=== PATIENT | female | born 1960 | race Caucasian/White ===

== ENCOUNTER → 2017-05-01 | Outpatient (CLI) | payer BC ==
[~2017-05-01] MED LIST: AMIT10TA PO; BUDE10.22 IH; DEXL60CA2 PO; DICL75TA PO; FLUT1DIS3 IH; LEVO25TA4 PO; LORA0.5T PO; SERT25TA PO; SIMV20TA3 PO; SUMA100T4 PO
--- NOTE | 2017-05-01 15:39 | RAD ---
Indication chronic left ankle pain. AP oblique and lateral views of the left ankle were obtained. Arthrodesis is noted. There is bony demineralization perhaps on a disuse basis. An acute bony finding is not seen. There is some deformity of the distal fibular diaphysis having a chronic appearance. IMPRESSION: Chronic changes. No acute finding seen
== END | disposition home or self-care (01) ==
LOC: DXRADRC 15:26
PROVIDERS: ATTEND Family Medicine
DX: M25.572 Pain in left ankle and joints of left foot (principal)
CPT/HCPCS: 73610

== ENCOUNTER 2018-10-06 15:13 | Emergency (ER) | payer BC ==
[~2018-10-06] VITALS: Ht 154.9 cm; Wt 44.9 kg
[2018-10-06 15:13] VITALS: BP 100/59
--- NOTE | 2018-10-06 15:38 | PHYS DOC ---
Past History Past Medical History: Asthma, High Cholesterol Smoking: Cigarettes Adult General Chief Complaint Chief Complaint: LOWER EXTREMITY SWELLING HPI HPI Patient presents to the emergency department for evaluation. She states that about a week ago while at work, she dropped a heavy crate on her left leg, and developed some bruising on the left lateral aspect of her lower leg below the knee, in the area of the fibular head. She also developed a subcutaneous nodule on her anterior batres on the left. She has not had any significant pain, and has been able to angulate without any difficulty. She has had chronic ankle issue secondary to fusion many years ago on her left ankle, but is not having any discomfort in the area. Her employer required her to come to the emergency department for evaluation for Worker's Compensation and treatment to rule out a blood clot. The patient is having no increased edema of her leg compared to her baseline, and is having no calf or soft tissue pain. She is ambulatory without any difficulty. She denies any chest pain or shortness of breath, and is having no other complaints at this time. Review of Systems Review of Systems Constitutional: Denies fever or chills [] Eyes: Denies change in visual acuity, redness, or eye pain [] HENT: Denies nasal congestion or sore throat [] Respiratory: Denies cough or shortness of breath [] Cardiovascular: The patient denies any shortness of breath, chest pain, palpitations, or orthopnea[] Musculoskeletal: Denies back pain or joint pain [] Integument: Denies rash or skin lesions [] Neurologic: Denies headache, focal weakness or sensory changes [] Allergies Allergies Allergies Coded Allergies Type Severity Reaction Last Updated Verified Penicillins Allergy Unknown 06/26/15 Yes Physical Exam Physical Exam PHYSICAL EXAM: CONSTITUTIONAL: Well developed, well nourished HEAD: normocephalic, atraumatic EENT: PERRL, EOMI. Conjunctivae normal color, sclerae non-icteric; moist mucous membranes. NECK: Supple, non-tender; no meningismus. LUNGS: Lungs CTA, breathing even and unlabored. Normal air movement. HEART: Regular rate and rhythm, no murmur CHEST: No deformity; non-tender ABDOMEN: The abdomen is soft, and non-tender, no masses or bruits. EXTREM: Normal ROM; no deformity, no calf tenderness. Normal pulses palpable in all extremities. There is a half dollar area of bruising noted at the left lateral superior lower leg, in the area of the fibular head, without any crepitus or bony tenderness to palpation. There is a small subcutaneous nodule on the lower anterior batres, about nicci size, which is nontender. There are no skin changes in this area. There is no other bruising noted. There is chronic changes noted to the left ankle without any tenderness to palpation. Distal pulses are normal. There is no calf tenderness to palpation or soft tissue swelling. The soft tissues of the thighs are nontender bilaterally. The remainder of the extremities are unremarkable, there is trace nonpitting pedal edema to the lower extremities bilaterally. SKIN: No rash; no diaphoresis NEURO: Alert; normal speech and cognition; CN's grossly intact; strength grossly intact without focal deficit. BACK: No CVA TTP. EKG EKG [] Radiology/Procedures Radiology/Procedures [] Course & Med Decision Making Course & Med Decision Making The clinical suspicion for DVT is extraordinarily low. I do not even think the patient warrants an ultrasound and she is agreeable to expectant management. I' m uncertain of the exact etiology of the soft tissue nodule her anterior batres, it might be posttraumatic but is certain it does not appear to be a DVT or even a superficial thrombophlebitis. I did discuss importance of close follow-up with the patient's PCP for further evaluation if needed. Dragon Disclaimer Dragon Disclaimer This electronic medical record was generated, in whole or in part, using a voice recognition dictation system. Departure Departure: Impression: Primary Impression: Contusion Disposition: 01 HOME, SELF-CARE Condition: STABLE Referrals: YEHUDA BAKER MD (PCP) Patient Instructions: Contusion DEMI MACEDO MD Oct 06, 2018 15:38
== END 2018-10-06 15:46 | disposition home or self-care (01) ==
LOC: ER 15:13
DX: S80.12XA Contusion of left lower leg, initial encounter (principal); R22.42 Localized swelling, mass and lump, left lower limb; J45.909 Unspecified asthma, uncomplicated; E78.00 Pure hypercholesterolemia, unspecified; F17.210 Nicotine dependence, cigarettes, uncomplicated; Z88.0 Allergy status to penicillin; W20.8XXA Other cause of strike by thrown, projected or falling object, initial encounter; Y93.89 Activity, other specified; Y92.89 Other specified places as the place of occurrence of the external cause; Y99.0 Civilian activity done for income or pay
CPT/HCPCS: 99281

== ENCOUNTER 2019-05-12 14:12 | Emergency (ER) | payer SELFPAY ==
[2019-05-12] MEDS ORDERED: IV NORMAL SALINE 1,000ML 1,000 ML IV ONE (14:30)
--- NOTE | 2019-05-12 14:47 | EKG ---
[address] [address] Test Date: 2019-05-12 Test Time: 14:47:20 Pat Name: GARCIA TELLEZ Department: Room: Gender: F Sr. Manager: : 1960 Requested By: YAMILA STEWART Order Number: [id number] Reading MD: Measurements Intervals [place] Rate: 61 P: 49 PA: 152 QRS: 56 QRSD: 82 T: 38 QT: 436 QTc: 440 Interpretive Statements SINUS RHYTHM NORMAL ECG RI6.01 No previous ECG available for comparison
[2019-05-12 15:05] LABS: BASO % 0 % (0-3); EOS % 1 % (0-3); HEMATOCRIT 41.4 % (36.0-47.0); HEMOGLOBIN 13.7 g/dL (12.0-15.5); LYMPH # 1.7 x10^3/uL (1.0-4.8); LYMPH % 30 % (24-48); MEAN CORPUSCULAR HEMOGLOBIN 33 pg (25-35); MEAN CORPUSCULAR HGB CONC 33 g/dL (31-37); MEAN CORPUSCULAR VOLUME 100 fL (79-100); MONO # 0.5 x10^3/uL (0.0-1.1); MONO % 10 % (0-9); NEUT # 3.2 x10^3uL (1.8-7.7); NEUT % 59 % (31-73); PLATELET COUNT 295 x10^3/uL (140-400); RED BLOOD COUNT 4.14 x10^6/uL (3.50-5.40); RED CELL DISTRIBUTION WIDTH 13.8 % (11.5-14.5); WHITE BLOOD COUNT 5.5 x10^3/uL (4.0-11.0)
[2019-05-12 15:20] LABS: ALBUMIN 3.7 g/dL (3.4-5.0); ALBUMIN/GLOBULIN RATIO 1.1 (1.0-1.7); CALCIUM 9.2 mg/dL (8.5-10.1); CREATININE 0.8 mg/dL (0.6-1.0); GFR 73.7; MAGNESIUM 2.2 mg/dL (1.8-2.4); POTASSIUM 4.4 mmol/L (3.5-5.1); TOTAL BILIRUBIN 0.2 mg/dL (0.2-1.0)
[2019-05-12] MEDS ORDERED: DEXAMETHASONE SOD PHOS 10 MG/ML VIAL IV ONE (15:30)
--- NOTE | 2019-05-12 15:34 | PHYS DOC ---
Past History Past Medical History: Asthma, High Cholesterol Past Surgical History: Hysterectomy, Other Smoking: Cigarettes, Greater than 1 pack/day Alcohol Use: None Drug Use: None Adult General Chief Complaint Chief Complaint: DIZZY/LIGHT HEADED HPI HPI Ms. Lamas is a 58yo F w/ PMH significant for asthma and hypothyroidism presents w/ fatigue, balance issues, and b/l ear pain that began a "couple of days ago." Reports feeling hot and cold. Denies PAZ, vertigo, CP, SOA, or LOC, fall or head trauma. States she "ran out" of her medications 2 days ago which include Zoloft and Levothyroxine. Review of Systems Review of Systems Constitutional: Reports fatigue and generalized weakness. Denies fever or chills Eyes: Denies redness or eye pain HENT: Reports b/l ear pain. Denies nasal congestion or sore throat Respiratory: Denies cough or shortness of breath Cardiovascular: Denies chest pain or palpitations GI: Denies abdominal pain, nausea, vomiting, diarrhea, constipation, or hematochezia. : Denies dysuria or hematuria Musculoskeletal: Denies back pain or joint pain Integument: Denies rash or skin lesions Neurologic: Denies headache, focal weakness or sensory changes Complete systems were reviewed and found to be within normal limits, except as documented in this note. Current Medications Current Medications Current Medications Medications (Trade) Dose Ordered Sig/Mohsen Start Time Stop Time Status Last Admin Dose Admin Sodium Chloride 1,000 ml @ 1,000 mls/hr 1X ONCE 05/12/19 14:30 05/12/19 15:29 05/12/19 14:15 1,000 MLS/HR Allergies Allergies Allergies Coded Allergies Type Severity Reaction Last Updated Verified Penicillins Allergy Unknown 06/26/15 Yes Physical Exam Physical Exam Constitutional: thin, fatigued, no acute distress, non-toxic appearance HENT: Normocephalic, atraumatic, oropharynx dry Eyes: PERRL, EOMI, conjunctiva normal, no discharge Neck: Normal range of motion, no tenderness, supple, no cervical or supraclavicular LAD Cardiovascular: Heart RRR w/o gallops, rubs, or murmurs. Lungs & Thorax: Bilateral breath sounds clear to auscultation, no wheezing Abdomen: Soft, no tenderness, non-distended Skin: Warm, dry, no erythema, no rash Back: No tenderness, no CVA tenderness Extremities: No tenderness, ROM intact, no edema Neurologic: Alert and oriented X 3, normal motor function, normal sensory function, no focal deficits noted Psychologic: Affect normal, judgement normal, mood normal Current Patient Data Vital Signs Vital Signs Date Time Temp Pulse Resp B/P (MAP) Pulse Ox O2 Delivery O2 Flow Rate FiO2 05/12/19 14:30 98.3 68 20 98 Room Air Lab Results Laboratory Tests Test 05/12/19 14:40 White Blood Count 5.5 x10^3/uL (4.0-11.0) Red Blood Count 4.14 x10^6/uL (3.50-5.40) Hemoglobin 13.7 g/dL (12.0-15.5) Hematocrit 41.4 % (36.0-47.0) Mean Corpuscular Volume 100 fL (79-100) Mean Corpuscular Hemoglobin 33 pg (25-35) Mean Corpuscular Hemoglobin Concent 33 g/dL (31-37) Red Cell Distribution Width 13.8 % (11.5-14.5) Platelet Count 295 x10^3/uL (140-400) Neutrophils (%) (Auto) 59 % (31-73) Lymphocytes (%) (Auto) 30 % (24-48) Monocytes (%) (Auto) 10 % (0-9) H Eosinophils (%) (Auto) 1 % (0-3) Basophils (%) (Auto) 0 % (0-3) Neutrophils # (Auto) 3.2 x10^3uL (1.8-7.7) Lymphocytes # (Auto) 1.7 x10^3/uL (1.0-4.8) Monocytes # (Auto) 0.5 x10^3/uL (0.0-1.1) Eosinophils # (Auto) 0.0 x10^3/uL (0.0-0.7) Basophils # (Auto) 0.0 x10^3/uL (0.0-0.2) Sodium Level 141 mmol/L (136-145) Potassium Level 4.4 mmol/L (3.5-5.1) Chloride Level 105 mmol/L (98-107) Carbon Dioxide Level 26 mmol/L (21-32) Anion Gap 10 (6-14) Blood Urea Nitrogen 20 mg/dL (7-20) Creatinine 0.8 mg/dL (0.6-1.0) Estimated GFR (Cockcroft-Gault) 73.7 BUN/Creatinine Ratio 25 (6-20) H Glucose Level 83 mg/dL (70-99) Lactic Acid Level 0.8 mmol/L (0.4-2.0) Calcium Level 9.2 mg/dL (8.5-10.1) Magnesium Level 2.2 mg/dL (1.8-2.4) Total Bilirubin 0.2 mg/dL (0.2-1.0) Aspartate Amino Transferase (AST) 14 U/L (15-37) L Alanine Aminotransferase (ALT) 16 U/L (14-59) Alkaline Phosphatase 77 U/L (46-116) Creatine Kinase 81 U/L (26-192) Creatine Kinase MB (Mass) 2.0 ng/mL (0.0-3.6) Creatine Kinase MB Relative Index 2.5 % (0-4) Total Protein 7.0 g/dL (6.4-8.2) Albumin 3.7 g/dL (3.4-5.0) Albumin/Globulin Ratio 1.1 (1.0-1.7) EKG EKG EKG obtained @ 14:47 and read @ 14:48. Sinus rhythm w/ LVH of lateral chest leads V4-6. No ST-elevations noted.[] Radiology/Procedures Radiology/Procedures Head CT: 1. No acute intracranial abnormality is identified. 2. There is some asymmetric likely calcification region of the left cavernous sinus comparing with the right, underlying aneurysm not excludable by this exam. Chest X-Ray: No acute chest process is seen. [] Course & Med Decision Making Course & Med Decision Making Pertinent Labs and Imaging studies reviewed. (See chart for details) Patient presented w/ generalized fatigue. Negative for UTI. No acute processes noted on CXR or Head CT. EKG sinus rhythm w/ LVH. Patient stable for discharge with outpatient follow-up with PCP. Discussed findings and plan with patient and family, who acknowledge understanding and agreement. [] Dragon Disclaimer Dragon Disclaimer This electronic medical record was generated, in whole or in part, using a voice recognition dictation system. Departure Departure: Impression: Primary Impression: Generalized weakness Disposition: 01 HOME, SELF-CARE Condition: STABLE Referrals: YEHUDA BAKER MD (PCP) Patient Instructions: Fatigue, Weakness, [id number] Additional Instructions: Increase fluid hydration. NIHSS - ED NIH Stroke Scale: NIH Stroke Scale Response (Comments) Value Level of Consciousness: 0 Alert/Responsive 0 LOC Questions: 0 Answers both correctly 0 LOC Commands: 0 Performs both tasks 0 Best Gaze: 0 Normal 0 Visual: 0 No visual loss 0 Facial Palsy: 0 Normal, symmetrical 0 Motor - Left Arm 0 No drift 0 Motor - Right Arm 0 No drift 0 Motor - Left Leg 0 No drift 0 Motor: Right Leg 0 No drift 0 Limb Ataxia: 0 Absent 0 Sensory: 0 No loss 0 Best Language: 0 Normal 0 Dysathria: 0 Normal 0 Extinction and Inattention: 0 Normal 0 Total 0 STEWART,YAMILA Hendricks DO May 12, 2019 15:34
--- NOTE | 2019-05-12 15:55 | RAD ---
Chest, PA and Lateral: Technique: PA and lateral views of the chest were obtained. History: Weakness. Comparison: None. Findings: The heart and pulmonary vasculature appear within normal limits. The lungs are clear. The pleural margins are clear. Impression: No acute chest process is seen. Electronically signed by: Pedrito Mendez MD (05/12/2019 3:52 PM) [id number]
--- NOTE | 2019-05-12 16:02 | RAD ---
CT HEAD WO CONTRAST History: Weakness Comparison: December 03, 2012 Technique: Noncontrast CT imaging was performed of the head. Exposure: One or more of the following individualized dose reduction techniques were utilized for this examination: 1. Automated exposure control 2. Adjustment of the mA and/or kV according to patient size 3. Use of iterative reconstruction technique. Findings: No acute extra-axial or parenchymal hemorrhage is identified. There is no significant intra-axial mass effect, midline shift, or extra-axial fluid collection. The goodwin-white differentiation of the major vascular territories is preserved. The ventricles, sulci, and cisterns are within normal limits in size and configuration. The mastoid air cells and the visualized paranasal sinuses are aerated. No acute calvarial abnormality is identified. There is some atherosclerotic calcification of the left carotid siphon. There is some asymmetric likely calcification in the region of the left cavernous sinus comparing with the right. Impression: 1. No acute intracranial abnormality is identified. 2. There is some asymmetric likely calcification region of the left cavernous sinus comparing with the right, underlying aneurysm not excludable by this exam. Electronically signed by: Ridge Elizalde MD (05/12/2019 3:59 PM) [id number]
[2019-05-12 16:33] LABS: AMPHETAMINE/METHAMPHETAMINE NEG (NEG); BARBITURATES NEG (NEG); BENZODIAZEPINES POS (NEG); CANNABINOIDS NEG (NEG); COCAINE NEG (NEG); METHADONE NEG (NEG); OPIATES NEG (NEG); PHENCYCLIDINE NEG (NEG)
[2019-05-12 16:43] LABS: BACTERIA,URINE 0 /HPF (0-FEW); BILIRUBIN,URINE NEG (NEG); CLARITY,URINE HAZY; COLOR,URINE AMBER; GLUCOSE,URINE NEG (NEG); NITRITE,URINE NEG (NEG); RBC,URINE OCC /HPF (0-2); SQUAMOUS EPITHELIAL CELL,UR OCC /LPF; UROBILINOGEN,URINE 0.2 mg/dL (0.2 mg/dL); WBC,URINE 0 /HPF (0-4)
[2019-05-12 17:48] VITALS: BP 112/71
[2019-05-13 14:38] LABS: FREE T4 0.72 ng/dL (0.76-1.46); THYROID STIM HORMONE (TSH) 1.149 uIU/mL (0.358-3.740)
== END 2019-05-12 17:40 | disposition home or self-care (01) ==
LOC: ER 14:12
DX: R53.1 Weakness (principal); R53.83 Other fatigue; H92.03 Otalgia, bilateral; J45.909 Unspecified asthma, uncomplicated; E78.00 Pure hypercholesterolemia, unspecified; F17.210 Nicotine dependence, cigarettes, uncomplicated; E03.9 Hypothyroidism, unspecified; Z88.0 Allergy status to penicillin
CPT/HCPCS: 36415; 70450; 71046; 80053; 80307; 81001; 82553; 82947; 83605; 83735; 84439; 84443; 84481; 84484; 85025; 93005; 96374; 99285; G0480; J1100; J7030

== ENCOUNTER 2019-06-07 15:20 | Emergency (ER) | payer SELFPAY ==
[~2019-06-07] VITALS: Ht 154.9 cm; Wt 43.1 kg
[2019-06-07 15:25] VITALS: BP 121/89
[2019-06-07] MEDS ORDERED: DEXAMETHASONE SOD PHOS 10 MG/ML VIAL IM ONE (15:45)
[2019-06-07] MEDS ORDERED: KETOROLAC 60 MG/2 ML VIAL. IM ONE (15:45)
--- NOTE | 2019-06-07 16:07 | RAD ---
EXAM: Pelvis, single view; sacrum and coccyx, 3 views. HISTORY: Fall. Pain. COMPARISON: None. FINDINGS: A frontal view the pelvis and 3 views of the sacrum and coccyx are obtained. No displaced fracture is seen. The femoral heads are normal in configuration and seated appropriately. The sacroiliac joints and pubis symphysis are intact. There is slight widening of the space between the C1 and C2 segments, within physiologic limits. IMPRESSION: No acute osseous finding. Electronically signed by: Jacque Dickson MD (06/07/2019 4:04 PM) [place] [id number]
[2019-06-07] MEDS ORDERED: HYDR-3165 PO (16:25)
[2019-06-07] MEDS ORDERED: DICL50TA4 PO (16:25)
--- NOTE | 2019-06-07 16:25 | PHYS DOC ---
Past History Past Medical History: Asthma, Depression, High Cholesterol, Hypothyroid Past Surgical History: Hysterectomy, Other Smoking: Cigarettes, Greater than 1 pack/day Alcohol Use: None Drug Use: None Adult General Chief Complaint Chief Complaint: BACK PAIN OR INJURY [facility] HPI Patient is a 58-year-old female who presents with complaint of approximately 1 week history of pain in her right lower back/buttock area. Patient states that pain is about an 8-9 out of 10. She denies any loss of bowel or bladder control. Patient is not aware of any recent injuries to cause the pain. She states that she has been taking [id number] pain medication without any relief. She does indicate the pain is progressively getting worse. She states that as long as she is not moving, she does not have significant pain. She states that as soon as she tries to move her right leg or lift the leg, she feels a stabbing pain in her right SI joint region.[] Review of Systems Review of Systems Constitutional: Denies fever or chills [] Respiratory: Denies cough or shortness of breath [] Cardiovascular: No additional information not addressed in HPI [] Musculoskeletal: Complains of right lower back/buttock pain [] Integument: Denies rash or skin lesions [] Neurologic: Denies headache, focal weakness or sensory changes [] Current Medications Current Medications Current Medications Medications (Trade) Dose Ordered Sig/[facility] Start Time Stop Time Status Last Admin Dose Admin Dexamethasone Sodium Phosphate (Decadron) 10 mg 1X ONCE 06/07/19 15:45 06/07/19 15:46 DC 06/07/19 15:53 10 MG Ketorolac Tromethamine (Toradol Im) 30 mg 1X ONCE 06/07/19 15:45 06/07/19 15:46 DC 06/07/19 15:53 30 MG Allergies Allergies Allergies Coded Allergies Type Severity Reaction Last Updated Verified Penicillins Allergy Unknown 06/26/15 Yes Physical Exam Physical Exam Constitutional: Well developed, well nourished, no acute distress, non-toxic appearance. [] Cardiovascular:Heart rate regular rhythm, no murmur [] Lungs & Thorax: Bilateral breath sounds clear to auscultation [] Skin: Warm, dry, no erythema, no rash. [] Back: There is moderate tenderness to palpation around the right sacral sulcus and overlying the right SI joint. [] Extremities: No tenderness, no cyanosis, no clubbing, ROM intact, no edema. [] Current Patient Data Vital Signs Vital Signs Date Time Temp Pulse Resp B/P (MAP) Pulse Ox O2 Delivery O2 Flow Rate FiO2 06/07/19 15:25 98.2 76 16 95 Room Air EKG EKG [] Radiology/Procedures Radiology/Procedures [] Impressions: PROCEDURE: PELVIS EXAM: Pelvis, single view; sacrum and coccyx, 3 views. HISTORY: Fall. Pain. COMPARISON: None. FINDINGS: A frontal view the pelvis and 3 views of the sacrum and coccyx are obtained. No displaced fracture is seen. The femoral heads are normal in configuration and seated appropriately. The sacroiliac joints and pubis symphysis are intact. There is slight widening of the space between the C1 and C2 segments, within physiologic limits. IMPRESSION: No acute osseous finding. Electronically signed by: Jacque Dickson MD (06/07/2019 4:04 PM) [place] [id number] DICTATED AND SIGNED BY: JACQUE DICKSON MD DATE: 06/07/19 1604 CC: JONAS TORRES Jr. DO; YEHUDA BAKER MD ~ PROCEDURE: SACRUM & COCCYX 3V EXAM: Pelvis, single view; sacrum and coccyx, 3 views. HISTORY: Fall. Pain. COMPARISON: None. FINDINGS: A frontal view the pelvis and 3 views of the sacrum and coccyx are obtained. No displaced fracture is seen. The femoral heads are normal in configuration and seated appropriately. The sacroiliac joints and pubis symphysis are intact. There is slight widening of the space between the C1 and C2 segments, within physiologic limits. IMPRESSION: No acute osseous finding. Electronically signed by: Jacque Dickson MD (06/07/2019 4:04 PM) [place] [id number] Course & Med Decision Making Course & Med Decision Making Pertinent Labs and Imaging studies reviewed. (See chart for details) [] Dragon Disclaimer Dragon Disclaimer This electronic medical record was generated, in whole or in part, using a voice recognition dictation system. Departure Departure: Impression: Primary Impression: Sacroiliac joint pain Disposition: 01 HOME, SELF-CARE Condition: STABLE Referrals: YEHUDA BAKER MD (PCP) Patient Instructions: Sacroiliac Joint Dysfunction Scripts Diclofenac Sodium (DICLOFENAC SODIUM) 50 Mg Tablet. 1 TAB PO BID PRN for PAIN, #20 TAB Prov: JONAS TORRES Jr. DO 06/07/19 Hydrocodone Bit/Acetaminophen (NORCO 5-325 TABLET) 1 Each Tablet 1 TAB PO PRN Q6HRS PRN for PAIN, #12 TAB 0 Refills Prov: JONAS TORRES Jr. DO 06/07/19 JONAS TORRES Jr. DO Jun 07, 2019 16:25
== END 2019-06-07 16:42 | disposition home or self-care (01) ==
LOC: ER 15:20
DX: M53.3 Sacrococcygeal disorders, not elsewhere classified (principal); J45.909 Unspecified asthma, uncomplicated; E78.00 Pure hypercholesterolemia, unspecified; E03.9 Hypothyroidism, unspecified; F17.210 Nicotine dependence, cigarettes, uncomplicated; Z90.710 Acquired absence of both cervix and uterus; Z88.0 Allergy status to penicillin
CPT/HCPCS: 72170; 72220; 96372; 99284; J1100; J1885

== ENCOUNTER 2020-03-19 00:45 | Inpatient (IN) | payer SELFPAY ==
[~2020-03-19] VITALS: Ht 154.9 cm; Wt 41.8 kg
[~2020-03-19 00:45] MED LIST changes: +DICL50TA4 PO; +HYDR-3165 PO; +SIMV20TA18 PO; -SIMV20TA3 PO
--- NOTE | 2020-03-19 01:04 | PHYS DOC ---
Past History Past Medical History: Anemia, Arthritis, Asthma, Bronchitis, COPD, Depression, High Cholesterol, Hypothyroid Past Surgical History: Hysterectomy, Other Past Surgical History Lt. ankle fx- repair, multiple breast bx, thryoid Smoking: Cigarettes, Greater than 1 pack/day Alcohol Use: Occasionally Drug Use: None General Adult EDM: Chief Complaint: LOWER EXTREMITY SWELLING HPI: HPI: ".. I am having a lot more swelling in my legs...".." It started yesterday.. all sudden... I ve always had some in that Lt. ankle I fractured last year.. I got too drunk..at a April green party.. they had to do surgery on it.. well anyway.... My friend seen my legs... and said I had to come in to night..." " My just got back home... he was here and then went to [employer].. 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 My legs got hurting and are so swollen my friend made me come in..." " I have been a little more short of breath... and weak..." " I came in the other day because I was weak... "..." I did take some my pain pills because of the leg pain..I took one just before my friend brought me... I am doing okay as far as the pain... now..." Patient is a 59 year old female who presents with above hx and complaints bilateral leg edema to the knees with pain. Patient denies previous history of DVT or coagulopathy. Patient has had periodic swelling of left ankle after she had a fracture in it a year ago that required surgical repair. Patient denies any changes in meds. Some in creased dyspnea recently. Patient does have a history of asthma, chronic bronchitis, osteoarthritis, hypothyroidism, hypertension, elevated cholesterol, multiple breast biopsy and BRCA gene positive. Did do a course of tamoxifen for 5 years for breast cancer suppression. The pt. denies excessive salt intake. Pt. has over 60 pack years tobacco use. Pt. recently trying to stop smoking with her . Occasional Marijuana use. Pt. denies any travel recently outside the [facility]. No history of specific ill contacts other than her who recently had a bad GI bleed and urine sepsis. Pt.denies any hx of immunosuppression. Pt. normally follows with Dr. Richey. Review of Systems: Review of Systems: Constitutional: Denies fever or chills Eyes: Denies change in visual acuity HENT: Denies nasal congestion or sore throat Respiratory: Hx cough and increased shortness of breath Cardiovascular: Denies chest pain . Complaints of bilateral leg edema GI: Denies abdominal pain, nausea, vomiting, bloody stools or diarrhea : Denies dysuria Musculoskeletal: Complaints of bilateral leg pain and edema. Integument: Denies rash Neurologic: Denies headache, focal weakness or sensory changes Endocrine: Denies polyuria or polydipsia Lymphatic: Denies swollen glands Psychiatric: Denies depression or anxiety Heart Score: HEART Score for Chest Pain: HEART Score for Chest Pain Response (Comments) Value History Slighlty/Non-Suspicious 0 ECG Nonspecific Repolarizatio 1 Age >45 - < 65 1 Risk Factors 1 or 2 Risk Factors 1 Troponin < Normal Limit 0 Total 3 Risk Factors: Risk Factors: DM, Current or recent (<one month) smoker, HTN, HLP, family history of CAD, obesity. Risk Scores: Score 0 - 3: 2.5% MACE over next 6 weeks - Discharge Home Score 4 - 6: 20.3% MACE over next 6 weeks - Admit for Clinical Observation Score 7 - 10: 72.7% MACE over next 6 weeks - Early Invasive Strategies Family History: Family History: Non contributory to presentation to night Current Medications: Current Meds: See Nursing for home meds. Allergies: Allergies: Allergies Coded Allergies Type Severity Reaction Last Updated Verified Penicillins Allergy Unknown 06/26/15 Yes Physical Exam: PE: Constitutional: mild distress, non-toxic appearance. [] HENT: Normocephalic, atraumatic, bilateral external ears normal, oropharynx moist, no oral exudates, nose normal. Nasal stud. Eyes: PERRLA, EOMI, conjunctiva normal, no discharge. [] Neck: Normal range of motion, no tenderness, supple, no stridor. Surgical scar. Cardiovascular:Heart rate regular rhythm, no murmur []PMI to Lt. Lungs & Thorax: Bilateral breath sounds equal apex with scattered wheezes on auscultation []Multiple breast biopsy scars. Abdomen: Bowel sounds normal, soft, no tenderness, no masses, no pulsatile masses. [] Old surgical scars. Skin: Warm, dry, no erythema, no rash. Poor turgor. Back: No tenderness, no CVA tenderness. [] Extremities:Bilateral lower leg tenderness, no cyanosis, no clubbing, , 2+edema to level of knees. Scar Lt.ankle. Limited ROM in Lt. ankle. . Arthritic changes. Dorsal pedal pulses present. Neurologic: Alert and oriented X 3,moves ext. on request, distal sensory function, no focal deficits noted. [] Psychologic: Affect anxious, judgement normal, mood normal. [] EKG: EKG: My interpretation EKG shows a sinus rhythm at 63 bpm. Has low voltage on leads. No findings of acute STEMI of contralateral changes. [] Radiology/Procedures: Radiology/Procedures: [address] [address] IMAGING REPORT Signed PATIENT: GARCIA TELLEZ ACCOUNT: [id number] : 1960 LOCATION: ER AGE: 59 SEX: F EXAM STATUS: REG ER ORD. PHYSICIAN: IMMANUEL MACHUCA MD REASON: dyspnea, BILAT. LEG SWELLING, OMNI 350, 75ml PROCEDURE: CT ANGIOGRAPHY CHEST INDICATION: Reason: dyspnea, BILAT. LEG SWELLING, OMNI 350, 75ml / Spl. Instructions: / History: COMPARISON: None. TECHNIQUE: Axial CT images obtained through the chest. Intravenous contrast utilized. Angiogram 3D images processed per protocol. One or more of the following individualized dose reduction techniques were utilized for this examination: 1. Automated exposure control; 2. Adjustment of the mA and/or kV according to patient size; 3. Use of iterative reconstruction technique. FINDINGS: Cystic changes throughout the bilateral lungs. No evidence of pneumothorax. Mild dependent atelectasis. Right upper lung subpleural nodule measuring approximately 4 mm. Cystic lesion at right kidney. Suspected left adrenal nodule which is low density measuring up to 17 mm. Could be from causes such as adenoma or hyperplasia. Calcific atherosclerosis throughout the thoracic aorta. There is almost no contrast within the lumen therefore the lumen is not evaluated. Coronary artery calcific atherosclerosis. Degenerative changes of the spine. Sclerotic lesion right second rib posteriorly. Most commonly from bone island unless the patient has history of neoplasm. Small peripheral filling defects in pulmonary arteries including left lung base. There is also some peripheral filling defects within the right lung base as well. Scoliotic curvature of the spine with degenerative changes. IMPRESSION: Small bilateral peripheral pulmonary embolus. Report called to the ER at 4:00 AM on date of exam. Cystic changes in bilateral lungs which can be seen with emphysema. There are some prominent lymph nodes including at the right pulmonary hilum. Could be reactive in nature but follow-up could be obtained to ensure no growth to exclude less common neoplastic causes. Electronically signed by: Tuan Rajput MD (03/19/2020 4:07 AM) [id number] [id number] DICTATED AND SIGNED BY: TUAN RAJPUT MD DATE: 03/19/20406 CC: IMMANUEL MACHUCA MD; YEHUDA RICHEY MD ~ [][place] [address] IMAGING REPORT Signed PATIENT: GARCIA TELLEZ ACCOUNT: [id number] : 1960 LOCATION: ER AGE: 59 SEX: F EXAM STATUS: REG ER ORD. PHYSICIAN: IMMANUEL MACHUCA MD REASON: PMI to lt PROCEDURE: CHEST PA & LATERAL INDICATION: Reason: PMI to lt / Spl. Instructions: / History: Shortness of breath COMPARISON: May 2019 FINDINGS: 2 view of chest obtained. Coarsened lung markings bilaterally with mild interstitial opacities. Calcific atherosclerosis without enlargement of the cardiac silhouette. IMPRESSION: * Coarsened lung markings bilaterally which could be secondary to chronic lung disease although a superimposed mild edema or pneumonitis is not excluded. Electronically signed by: Tuan Rajput MD (03/19/2020 4:21 AM) [id number] DICTATED AND SIGNED BY: TUAN RAJPUT MD DATE: 03/19/20420 CC: IMMANUEL MACHUCA MD; YEHUDA RICHEY MD ~ Course & Med Decision Making: Course & Med Decision Making Pertinent Labs and Imaging studies reviewed. (See chart for details) Admit to Dr. Navarro, observation status, complete US of legs and pelvis. Start with Lovenox and then Xarelto 15 bid. . Impression: 1. Edema- / Pain Bilateral Legs 2. Anemia 10.7 Hgb 3. Emphysema 4. Elevation of D-dimer 0.62 5. BNP 353 6. CK 211 7. Bilateral Pulmonary Embolisms 8. Tobacco Abuse ( excess 60+ pack years) 9. Hx. Osteoarthritis 10.Pulmonary nodules Rt. Hilar [] Dragon Disclaimer: Dragon Disclaimer: This electronic medical record was generated, in whole or in part, using a voice recognition dictation system. Departure Departure: Disposition: 01 HOME/RESIDENCE PRIOR TO ADM Condition: STABLE Referrals: YEHUDA RICHEY MD (PCP) Justification of Admission: Justification of Admission: Justification of Admission Dx: Yes Comments: Bilateral Pulmonary Embolus- Observation admit Dragon Disclaimer This chart was dictated in whole or in part using Voice Recognition software in a busy, high-work load, and often noisy Emergency Department environment. It may contain unintended and wholly unrecognized errors or omissions. IMMANUEL MACHUCA MD Mar 19, 2020 01:04
[2020-03-19] MEDS ORDERED: IV RINGERS SOLUTION,LACTATED 1,000 ML IV SCH (01:30)
[2020-03-19 01:52] LABS: BASO % 0 % (0-3); EOS # 0.1 x10^3/uL (0.0-0.7); EOS % 1 % (0-3); HEMATOCRIT 31.4 % (36.0-47.0); HEMOGLOBIN 10.7 g/dL (12.0-15.5); LYMPH # 2.5 x10^3/uL (1.0-4.8); LYMPH % 33 % (24-48); MEAN CORPUSCULAR HEMOGLOBIN 34 pg (25-35); MEAN CORPUSCULAR HGB CONC 34 g/dL (31-37); MEAN CORPUSCULAR VOLUME 99 fL (79-100); MONO # 0.5 x10^3/uL (0.0-1.1); MONO % 6 % (0-9); NEUT # 4.5 x10^3uL (1.8-7.7); NEUT % 59 % (31-73); PLATELET COUNT 381 x10^3/uL (140-400); RED BLOOD COUNT 3.17 x10^6/uL (3.50-5.40); WHITE BLOOD COUNT 7.7 x10^3/uL (4.0-11.0)
[2020-03-19 01:57] LABS: BILIRUBIN,URINE NEG (NEG); CLARITY,URINE CLEAR; COLOR,URINE YELLOW; GLUCOSE,URINE NEG (NEG); NITRITE,URINE NEG (NEG); UROBILINOGEN,URINE 0.2 mg/dL (0.2 mg/dL)
[2020-03-19 01:58] LABS: BACTERIA,URINE 0 /HPF (0-FEW); RBC,URINE 0 /HPF (0-2); SQUAMOUS EPITHELIAL CELL,UR OCC /LPF; WBC,URINE RARE /HPF (0-4)
[2020-03-19 02:03] LABS: ANION GAP 11 (6-14); BLOOD UREA NITROGEN 17 mg/dL (7-20); CALCIUM 8.1 mg/dL (8.5-10.1); CARBON DIOXIDE 24 mmol/L (21-32); CHLORIDE 106 mmol/L (98-107); CREATININE 0.8 mg/dL (0.6-1.0); GFR 73.4; GLUCOSE 84 mg/dL (70-99); POTASSIUM 3.5 mmol/L (3.5-5.1); SODIUM 141 mmol/L (136-145)
[2020-03-19 02:04] LABS: BARBITURATES NEG (NEG); BENZODIAZEPINES NEG (NEG); CANNABINOIDS NEG (NEG); COCAINE NEG (NEG); METHADONE NEG (NEG); OPIATES POS (NEG); PHENCYCLIDINE NEG (NEG)
[2020-03-19 02:15] LABS: AMPHETAMINE/METHAMPHETAMINE NEG (NEG)
[2020-03-19 02:15] LABS: ALBUMIN 3.2 g/dL (3.4-5.0); ALK PHOS 65 U/L (46-116); ALT (SGPT) 16 U/L (14-59); AST (SGOT) 19 U/L (15-37); LIPASE 98 U/L (73-393); MAGNESIUM 1.8 mg/dL (1.8-2.4); TOTAL BILIRUBIN 0.1 mg/dL (0.2-1.0); TOTAL PROTEIN 6.4 g/dL (6.4-8.2)
[2020-03-19 02:17] LABS: DIRECT BILIRUBIN < 0.1 mg/dL (0.0-0.2)
[2020-03-19] MEDS ORDERED: CONTRAST GIVEN MC PRN (02:45)
[2020-03-19] MEDS ORDERED: IOHEXOL 350 MG/ML 100 ML VIAL. IV ONE (03:00)
[2020-03-19] MEDS ORDERED: ENOXAPARIN 40 MG/0.4 ML SYRINGE. SQ ONE (03:00)
[2020-03-19] MEDS ORDERED: FUROSEMIDE 40 MG/4 ML VIAL IVP ONE (03:00)
--- NOTE | 2020-03-19 04:10 | RAD ---
INDICATION: Reason: dyspnea, BILAT. LEG SWELLING, OMNI 350, 75ml / Spl. Instructions: / History: COMPARISON: None. TECHNIQUE: Axial CT images obtained through the chest. Intravenous contrast utilized. Angiogram 3D images processed per protocol. One or more of the following individualized dose reduction techniques were utilized for this examination: 1. Automated exposure control; 2. Adjustment of the mA and/or kV according to patient size; 3. Use of iterative reconstruction technique. FINDINGS: Cystic changes throughout the bilateral lungs. No evidence of pneumothorax. Mild dependent atelectasis. Right upper lung subpleural nodule measuring approximately 4 mm. Cystic lesion at right kidney. Suspected left adrenal nodule which is low density measuring up to 17 mm. Could be from causes such as adenoma or hyperplasia. Calcific atherosclerosis throughout the thoracic aorta. There is almost no contrast within the lumen therefore the lumen is not evaluated. Coronary artery calcific atherosclerosis. Degenerative changes of the spine. Sclerotic lesion right second rib posteriorly. Most commonly from bone island unless the patient has history of neoplasm. Small peripheral filling defects in pulmonary arteries including left lung base. There is also some peripheral filling defects within the right lung base as well. Scoliotic curvature of the spine with degenerative changes. IMPRESSION: Small bilateral peripheral pulmonary embolus. Report called to the ER at 4:00 AM on date of exam. Cystic changes in bilateral lungs which can be seen with emphysema. There are some prominent lymph nodes including at the right pulmonary hilum. Could be reactive in nature but follow-up could be obtained to ensure no growth to exclude less common neoplastic causes. Electronically signed by: Michael Mittal MD (03/19/2020 4:07 AM) [id number]
--- NOTE | 2020-03-19 04:24 | RAD ---
INDICATION: Reason: PMI to lt / Spl. Instructions: / History: Shortness of breath COMPARISON: May 2019 FINDINGS: 2 view of chest obtained. Coarsened lung markings bilaterally with mild interstitial opacities. Calcific atherosclerosis without enlargement of the cardiac silhouette. IMPRESSION: * Coarsened lung markings bilaterally which could be secondary to chronic lung disease although a superimposed mild edema or pneumonitis is not excluded. Electronically signed by: Michael Mittal MD (03/19/2020 4:21 AM) [id number]
[2020-03-19] MEDS ORDERED: ONDANSETRON PF 4 MG/2 ML VIAL. IVP PRN (04:30)
[2020-03-19] MEDS ORDERED: ACETAMINOPHEN 325 MG TABLET PO PRN (04:30)
--- NOTE | 2020-03-19 04:39 | RAD ---
INDICATION: Reason: increase Lt. ankle pain, MULTIPLE SURGERIES. / Spl. Instructions: / History: COMPARISON: None. IMPRESSION: Left ankle: 3 views obtained. Deformity of the left ankle is identified with the distal fibula missing with some high density material within the soft tissues which could be postoperative in nature. There is fusion at the ankle joint with screws seen at the tibia and talus with osseous fusion changes. Degenerative changes are identified. Plantar calcaneal spur. Edema of soft tissues. A definite acute fracture line is not seen. Electronically signed by: Michael Mittal MD (03/19/2020 4:36 AM) [id number]
[2020-03-19] MEDS ORDERED: ANTI-COAG MONITOR BY PHARMACY. MC PRN (04:45)
[2020-03-19 05:00] VITALS: BP 123/78
[2020-03-19] MEDS ORDERED: NICOTINE 21MG PATCH. TD ONE (05:00)
[2020-03-19] MEDS ORDERED: RIVAROXABAN 15 MG TABLET. PO ONE (05:00)
[2020-03-19] MEDS ORDERED: IPRATRPIUM/ALBUTEROL 0.5/2.5MG 3 ML NEBU. ONE (05:09)
[2020-03-19] MEDS: IPRATRPIUM/ALBUTEROL 0.5/2.5MG 3 ML NEBU. NEB SCH ×3 (05:44→16:00)
--- NOTE | 2020-03-19 07:22 | EKG ---
[address] [address] Test Date: 2020-03-19 Test Time: 01:30:21 Pat Name: GARCIA TELLEZ Department: Room: [facility]04 1 Gender: Benefits Coordinator: : 1960 Requested By: IMMANUEL MACHUCA Order Number: [id number] Reading MD: Dutch Montilla MD Measurements Intervals [place] Rate: P: MD: QRS: QRSD: T: QT: QTc: Interpretive Statements SR NON-SPECIFIC ST/T CHANGES Electronically Signed On 03-22-2020 12:11:01 CDT by Dutch Montilla MD
[2020-03-19 11:00] VITALS: BP 126/74
--- NOTE | 2020-03-19 12:04 | RAD ---
Bilateral lower extremity venous doppler ultrasound History: Bilateral leg pain, bilateral pulmonary emboli Comparison: None Findings: Multiple grayscale, color, and duplex spectral analysis sonographic images were acquired of the bilateral lower extremity veins to evaluate for the presence of DVT. There is normal phasicity. Normal compression, color-flow, and augmentation is demonstrated from the visualized bilateral common femoral to the popliteal veins. Calf veins are poorly visualized due to edema. Impression: 1. There is no demonstrable evidence of deep venous thrombosis from the visualized bilateral common femoral to the popliteal veins. 2. There is edema of the soft tissues. Electronically signed by: Ridge Elizalde MD (03/19/2020 12:01 PM) [id number]
[2020-03-19 14:24] LABS: THYROID STIM HORMONE (TSH) 1.62 uIU/mL (0.358-3.740)
[2020-03-19 15:00] VITALS: BP 116/66
[2020-03-19] MEDS ORDERED: HYDROcodone/APAP 5/325MG 1 TAB TABLET PO PRN (16:15)
[2020-03-19] MEDS ORDERED: APIX5TAB5 PO (16:18)
--- NOTE | 2020-03-19 16:45 | NUR ---
Discharge Note: GARCIA TELLEZ ICU4 Discharge instructions and discharge home medications reviewed with Patient and a copy given. All questions have been answered and understanding verbalized. PATIENT WAS ALSO GIVEN A DISCOUNT CARD FOR ELLIQUIS WITH EDUCATION TO AVOID NSAIDS. PATIENT WAS ALERT AND ORIENTED UPON DISCHARGE. PATIENT LEFT THE UNIT VIA WHEELCHAIR ACCOMPANIED BY TEST BAKER. PATIENTS FRIEND ESCORTED HER HOME. The following instructions and handouts were given: ELLIQUIS AND PULMONARY EMBOLISM.
[2020-03-19] MEDS ORDERED: RIVAROXABAN 15 MG TABLET. PO SCH (17:00)
--- NOTE | 2020-03-19 17:28 | SSS ---
ADMIT DATE: 03/19/2020 HISTORY OF PRESENT ILLNESS: The patient is a 59-year-old female patient who came to the Emergency Room complaining of left lower extremity swelling and that according to her started all of a sudden. She said that she has always had some swelling of her left ankle as she has fractured last year. She apparently was urged to come to the Emergency Room by her friend. She has had no history of DVT before and has had periodic swelling of her left ankle after she had fracture it a year ago and that required open reduction and internal fixation. She denied any chest pain, shortness of breath, cough, phlegm or hemoptysis. She was extensively investigated in the Emergency Room. Her lab work showed that she has normochromic normocytic anemia. Her chemistry was unremarkable and her D-dimer was slightly elevated at 0.62, and therefore, she underwent a CT angio of the chest, which basically showed small bilateral peripheral pulmonary emboli, cystic changes in bilateral lungs, which can be seen with emphysema. There are some prominent lymph nodes including right pulmonary hilum that could be reactive in nature, but followup could be obtained to ensure no growth to exclude less common neoplastic causes. Has had venous Doppler ultrasound of her left lower extremity, which showed no demonstrable evidence of deep vein thrombosis from the visualized bilateral common femoral to popliteal arteries. Her ankle x-ray showed that there is a fusion at the ankle joint with screw seen at the tibia and talus with osseous fusion changes. She was started on rivaroxaban for her bilateral pulmonary emboli and as she remained stable, a decision was made to discharge her home to continue on oral anticoagulant. PAST MEDICAL HISTORY: ____ she has hyperlipidemia, hypothyroidism, generalized osteoarthritis, and anemia. PAST SURGICAL HISTORY: Significant for hysterectomy, multiple breast biopsies and left ankle fracture, status post open reduction and internal fixation. ALLERGIES: She is allergic to PENICILLIN. MEDICATIONS: She is currently on following medications: She is on simvastatin 20 mg once a day, diclofenac sodium 75 mg twice a day ____, hydrocodone/APAP 5/325 one tablet every 6 hours, amitriptyline 10 mg once a day, sertraline 25 mg once a day, lorazepam 0.5 mg 3 times a day, sumatriptan succinate 100 mg as needed, Symbicort 80/4.5 one inhalation twice a day, Advair Diskus 250/50 one inhalation twice a day, Dexilant 60 mg once a day, levothyroxine sodium 25 mcg once a day. FAMILY HISTORY: Noncontributory. SOCIAL HISTORY: She is and lives with her . She smokes a pack a day, drinks alcohol occasionally. REVIEW OF SYSTEMS: As per history of present illness. The patient denied any blurring of vision, cataract, glaucoma or macular degeneration. Denied any earache, tinnitus or sensorineural deafness. Denied any nosebleeds, stuffy nose or postnasal drip. Denied any sore throat, sore tongue, toothache, hoarseness of voice or difficulty swallowing. Denied any nausea, vomiting, diarrhea or constipation. Denied any hematemesis, melena or hematochezia. Denied any dysuria, frequency or hematuria. Denied any chest pain, shortness of breath, orthopnea, paroxysmal nocturnal dyspnea. Denied any cough, phlegm or hemoptysis. Denied any dizziness, lightheadedness, or vertigo. PHYSICAL EXAMINATION: GENERAL: On arrival to the Emergency Room, she looked well and was clearly in no apparent respiratory distress. No pallor, jaundice, cyanosis or thyromegaly. No jugular venous distention. No limb edema except her left lower extremity is more swollen and according to her has always been more swollen since her surgery compared to the right one. VITAL SIGNS: Her heart rate was 73, blood pressure 116/88, temperature was 97.3, respiratory rate was 18 and oxygen saturation was 98%. HEAD, EYES, EARS, NOSE AND THROAT: Normocephalic, atraumatic. NECK: Supple. CARDIAC: Normal first and second heart sounds. No gallop or murmur. CHEST: Clear to auscultation. No crepitation or rhonchi. ABDOMEN: Scaphoid, soft, nontender. NEUROLOGIC: She is awake, alert, responding appropriately. All cranial nerves intact. EXTREMITIES: She moves extremities without difficulty. Her left lower extremity is definitely more swollen than right. LABORATORY DATA: Her lab work showed that her white cell count was 7700, hemoglobin 11, hematocrit 31, MCV 99, and platelet count 381,000. Her serum sodium was 141, potassium 3.5, chloride 106, bicarbonate 24, anion gap of 11, BUN 17, creatinine 0.8, estimated GFR was 73 mL per minute. Her glucose ____, calcium was 8.1, magnesium was 1.8. Total bilirubin, AST, ALT, alkaline phosphatase were normal. Total protein 6.4, albumin 3.2. Her fasting lipid profile shows triglycerides were 181, total cholesterol 221, LDL was 119, VLDL was 36, HDL was 66 and ratio was 3. Lipase was 98 and TSH was 1.620. Her prothrombin time, INR and aPTT normal. D-dimer slightly elevated at 0.62. Urinalysis was essentially unremarkable. Toxic screen was positive for opiates and negative for methadone, barbiturates, phencyclidine, amphetamine, methamphetamine, benzodiazepine, cocaine, cannabinoids and alcohol. Her x-ray of the chest showed that there are coarsened lung markings bilaterally with mild interstitial opacities, calcific atherosclerosis without enlargement of the cardiac silhouette. Her ankle x-ray showed that there are postoperative findings consistent with fusion of the ankle joint with screws seen at the tibia and talus with osseous fusion changes. She has degenerative changes identified. The CT scan of the chest with PE protocol showed that she has small bilateral peripheral pulmonary emboli. She has also cystic changes consistent with emphysema and her Doppler ultrasound of her lower extremities showed no demonstrable evidence of deep vein thrombosis from the visualized bilateral common femoral to the popliteal veins. ASSESSMENT AND PLAN: The patient will be discharged home to continue on all her medications except her diclofenac as she would be high risk for bleeding if she continued on her Xarelto. FINAL DISCHARGE DIAGNOSES: Small bilateral peripheral pulmonary emboli for which she was started on Xarelto and she has soft tissue swelling of the left lower extremity without evidence of deep vein thrombosis. She has multiple other medical problems including hyperlipidemia, chronic obstructive pulmonary disease, hypothyroidism. She should follow with her primary care physician, Dr. Silvestre Richey. DANILO CRAWFORD MD DR: MEGAN/wiley JOB#: [id number] / [id number]
[2020-03-19] MEDS ORDERED: BUDESONIDE 0.5 MG/2 ML NEBU NEB SCH (20:00)
[2020-03-19] MEDS ORDERED: ALBUTEROL SULFATE 2.5 MG/3 ML NEBU. NEB SCH (20:00)
[2020-03-19] MEDS ORDERED: AMITRIPTYLINE HCL 10 MG TABLET PO SCH (21:00)
[2020-03-19] MEDS ORDERED: LORazepam 0.5 MG TABLET PO SCH (21:00)
[2020-03-19] MEDS ORDERED: SIMVASTATIN 20 MG TABLET PO SCH (21:00)
[2020-03-19] MEDS ORDERED: NON FORMULARY ITEM (Budesonide/Formoterol Fumarate (Symbicort 80-4.5 Mcg Inhaler) 2 PUFF) IH SCH (21:00)
[2020-03-20] MEDS ORDERED: LEVOTHYROXINE 25 MCG TABLET. PO SCH (06:00)
[2020-03-20] MEDS ORDERED: SERTRALINE 25 MG TABLET. PO SCH (09:00)
[2020-03-20] MEDS ORDERED: PANTOPRAZOLE 40 MG TABLET. PO SCH (09:00)
== END 2020-03-19 16:50 | disposition home or self-care (01) | DRG 176 ==
LOC: ER 00:45 → ICU 04:00 → OBSVTOIN 04:00
PROVIDERS: ADMIT Internal Medicine; ATTEND Internal Medicine
DX: I26.99 Other pulmonary embolism without acute cor pulmonale (principal); D64.9 Anemia, unspecified; E03.9 Hypothyroidism, unspecified; E78.00 Pure hypercholesterolemia, unspecified; E78.5 Hyperlipidemia, unspecified; F12.90 Cannabis use, unspecified, uncomplicated; F17.210 Nicotine dependence, cigarettes, uncomplicated; I10 Essential (primary) hypertension; J43.9 Emphysema, unspecified; M15.9 Polyosteoarthritis, unspecified; Z85.3 Personal history of malignant neoplasm of breast; Z90.710 Acquired absence of both cervix and uterus; F32.9 Major depressive disorder, single episode, unspecified; Z79.899 Other long term (current) drug therapy
CPT/HCPCS: 36415; 71046; 71275; 73610; 80048; 80061; 80076; 80307; 81001; 82550; 83690; 83735; 83880; 84443; 84484; 85025; 85379; 85610; 85730; 93005; 93970; 94640; 96361; 96372; 96374; 99406; J1650; J1940; J7120; Q9967; 99285-25

== ENCOUNTER 2020-07-11 19:09 | Emergency (ER) | payer SELFPAY ==
[~2020-07-11] VITALS: Ht 154.9 cm; Wt 48.0 kg
[~2020-07-11 19:09] MED LIST changes: +APIX5TAB5 PO
[2020-07-11 19:53] LABS: BASO % 0 % (0-3); EOS % 0 % (0-3); HEMATOCRIT 25.3 % (36.0-47.0); HEMOGLOBIN 7.7 g/dL (12.0-15.5); LYMPH # 2.7 x10^3/uL (1.0-4.8); LYMPH % 38 % (24-48); MEAN CORPUSCULAR HEMOGLOBIN 23 pg (25-35); MEAN CORPUSCULAR HGB CONC 30 g/dL (31-37); MEAN CORPUSCULAR VOLUME 75 fL (79-100); MONO # 0.6 x10^3/uL (0.0-1.1); MONO % 8 % (0-9); NEUT # 3.8 x10^3uL (1.8-7.7); NEUT % 53 % (31-73); PLATELET COUNT 579 x10^3/uL (140-400); RED BLOOD COUNT 3.36 x10^6/uL (3.50-5.40); RED CELL DISTRIBUTION WIDTH 20.8 % (11.5-14.5); WHITE BLOOD COUNT 7.2 x10^3/uL (4.0-11.0)
[2020-07-11 19:58] LABS: CALCIUM 8.7 mg/dL (8.5-10.1); CREATININE 0.9 mg/dL (0.6-1.0); GFR 64.1; POTASSIUM 3.5 mmol/L (3.5-5.1)
--- NOTE | 2020-07-11 20:02 | RAD ---
INDICATION: Reason: syncope / Spl. Instructions: / History: COMPARISON: May 12, 2019 TECHNIQUE: Axial CT images obtained through the head without intravenous contrast. One or more of the following individualized dose reduction techniques were utilized for this examination: 1. Automated exposure control; 2. Adjustment of the mA and/or kV according to patient size; 3. Use of iterative reconstruction technique. FINDINGS: No intracranial hemorrhage. No midline shift. Basal cisterns patent. Ventricles and sulci are unremarkable. No acute osseous abnormality. Orbits and paranasal sinuses unremarkable. IMPRESSION: * No acute intracranial hemorrhage. Electronically signed by: Michael Mittal MD (07/11/2020 7:59 PM) [id number]
[2020-07-11 20:04] LABS: ALBUMIN 3.7 g/dL (3.4-5.0); TOTAL BILIRUBIN 0.1 mg/dL (0.2-1.0); TOTAL PROTEIN 7.5 g/dL (6.4-8.2)
--- NOTE | 2020-07-11 20:08 | PHYS DOC ---
Past History Past Medical History: Anemia, Arthritis, Asthma, Bronchitis, COPD, Depression, High Cholesterol, Hypothyroid Past Surgical History: Hysterectomy, Other Smoking: Cigarettes, Greater than 1 pack/day Alcohol Use: Occasionally Drug Use: None General Adult EDM: Chief Complaint: SYNCOPE HPI: HPI: 59-year-old female presents after syncopal episode at the store. Patient states that she was thing little on and that she might pass out when she did lose consciousness and collapsed to the floor. She started to wake up and get herself up but then passed out again. That time she got her right upper arm caught on the cart. A person who saw the episode told her she was only out for a few seconds. They got her up into a chair and gave her a bottle of water. She started to feel better after that. She currently feels normal. She denies history of syncope. She was recently started on Eliquis for pulmonary embolism. She has been taking these as prescribed. She denies chest pain or shortness of breath. She denies fever or chills. Review of Systems: Review of Systems: Constitutional: Denies fever or chills. Eyes: Denies change in visual acuity HENT: Denies nasal congestion or sore throat Respiratory: Denies cough or shortness of breath Cardiovascular: Denies chest pain or edema GI: Denies abdominal pain, nausea, vomiting, bloody stools or diarrhea : Denies dysuria Musculoskeletal: Denies back pain or joint pain Integument: Denies rash Neurologic: Syncope. denies headache, focal weakness or sensory changes Endocrine: Denies polyuria or polydipsia Lymphatic: Denies swollen glands Psychiatric: Denies depression or anxiety Heart Score: Risk Factors: Risk Factors: DM, Current or recent (<one month) smoker, HTN, HLP, family history of CAD, obesity. Risk Scores: Score 0 - 3: 2.5% MACE over next 6 weeks - Discharge Home Score 4 - 6: 20.3% MACE over next 6 weeks - Admit for Clinical Observation Score 7 - 10: 72.7% MACE over next 6 weeks - Early Invasive Strategies Allergies: Allergies: Allergies Coded Allergies Type Severity Reaction Last Updated Verified Penicillins Allergy Intermediate 03/19/20 Yes Physical Exam: PE: Constitutional: Well developed, well nourished, no acute distress, non-toxic appearance. [] HENT: Normocephalic, atraumatic, bilateral external ears normal, oropharynx moist, no oral exudates, nose normal. [] Eyes: PERRLA, EOMI, conjunctiva normal, no discharge. [] Neck: Normal range of motion, no tenderness, supple, no stridor. [] Cardiovascular: Heart rate regular rhythm, no murmur [] Lungs & Thorax: Bilateral breath sounds clear to auscultation [] Abdomen: Bowel sounds normal, soft, no tenderness, no masses, no pulsatile masses. [] Skin: Warm, dry, no erythema, no rash. [] Back: No tenderness, no CVA tenderness. [] Extremities: No tenderness, no cyanosis, no clubbing, ROM intact, no edema. [] Neurologic: Alert and oriented X 3, normal motor function, normal sensory function, no focal deficits noted. [] Psychologic: Affect normal, judgement normal, mood normal. [] Current Patient Data: Labs: Laboratory Tests Test 07/11/20 19:23 White Blood Count 7.2 x10^3/uL (4.0-11.0) Red Blood Count 3.36 x10^6/uL (3.50-5.40) L Hemoglobin 7.7 g/dL (12.0-15.5) L Hematocrit 25.3 % (36.0-47.0) L Mean Corpuscular Volume 75 fL (79-100) L Mean Corpuscular Hemoglobin 23 pg (25-35) L Mean Corpuscular Hemoglobin Concent 30 g/dL (31-37) L Red Cell Distribution Width 20.8 % (11.5-14.5) H Platelet Count 579 x10^3/uL (140-400) H Neutrophils (%) (Auto) 53 % (31-73) Lymphocytes (%) (Auto) 38 % (24-48) Monocytes (%) (Auto) 8 % (0-9) Eosinophils (%) (Auto) 0 % (0-3) Basophils (%) (Auto) 0 % (0-3) Neutrophils # (Auto) 3.8 x10^3uL (1.8-7.7) Lymphocytes # (Auto) 2.7 x10^3/uL (1.0-4.8) Monocytes # (Auto) 0.6 x10^3/uL (0.0-1.1) Eosinophils # (Auto) 0.0 x10^3/uL (0.0-0.7) Basophils # (Auto) 0.0 x10^3/uL (0.0-0.2) Platelet Estimate Pending Sodium Level 135 mmol/L (136-145) L Potassium Level 3.5 mmol/L (3.5-5.1) Chloride Level 101 mmol/L (98-107) Carbon Dioxide Level 22 mmol/L (21-32) Anion Gap 12 (6-14) Blood Urea Nitrogen 11 mg/dL (7-20) Creatinine 0.9 mg/dL (0.6-1.0) Estimated GFR (Cockcroft-Gault) 64.1 BUN/Creatinine Ratio 12 (6-20) Glucose Level 124 mg/dL (70-99) H Calcium Level 8.7 mg/dL (8.5-10.1) Total Bilirubin Pending Aspartate Amino Transferase (AST) Pending Alanine Aminotransferase (ALT) Pending Alkaline Phosphatase Pending Total Protein Pending Albumin Pending Albumin/Globulin Ratio Pending Vital Signs: Vital Signs Date Time Temp Pulse Resp B/P (MAP) Pulse Ox O2 Delivery O2 Flow Rate FiO2 07/11/20 19:19 97.7 75 19 126/98 (107) 95 Room Air EKG: EKG: Sinus rhythm, rate 63, normal axis, no ST elevations or depressions. [] Radiology/Procedures: Radiology/Procedures: [] Impressions: INDICATION: Reason: syncope / Spl. Instructions: / History: COMPARISON: May 12, 2019 TECHNIQUE: Axial CT images obtained through the head without intravenous contrast. One or more of the following individualized dose reduction techniques were utilized for this examination: 1. Automated exposure control; 2. Adjustment of the mA and/or kV according to patient size; 3. Use of iterative reconstruction technique. FINDINGS: No intracranial hemorrhage. No midline shift. Basal cisterns patent. Ventricles and sulci are unremarkable. No acute osseous abnormality. Orbits and paranasal sinuses unremarkable. IMPRESSION: * No acute intracranial hemorrhage. Electronically signed by: Tuan Rajput MD (07/11/2020 7:59 PM) [id number] DICTATED AND SIGNED BY: TUAN RAJPUT MD DATE: 07/11/201958 CC: ALLEGRA REYES DO; YEHUDA BAKER MD ~ Exam: Chest one view INDICATION: Syncope TECHNIQUE: Chest one view Comparisons: 03/19/2020 FINDINGS: The cardiomediastinal silhouette and pulmonary vessels are within normal limits. Stable coarse interstitial markings at the lung bases. No pleural effusion. IMPRESSION: No acute pulmonary process identified. Electronically signed by: Katie Loco MD (07/11/2020 8:08 PM) [id number] DICTATED AND SIGNED BY: KATIE LOCO MD DATE: 07/11/202007 CC: ALLEGRA REYES DO; YEHUDA BAKER MD ~ Course & Med Decision Making: Course & Med Decision Making Pertinent Labs and Imaging studies reviewed. (See chart for details) The patient's labs are significant for hemoglobin of 7.7. Her chart shows most recent hemoglobin of 10.7. I do not have any obvious source of bleeding. She has a small amount of blood in her urinalysis. Her head CT is negative for acute findings. Her chest x-ray is negative for acute findings. I will admit her to the hospital for trending of her hemoglobin as she is close to needing a transfusion. I spoke with Dr. Connolly and he has recommended the patient be transferred to [facility]. I spoke with Dr. Navarro and he has accepted the patient for transfer and admission to [facility]. She will go by ambulance. [] Dragon Disclaimer: Dragaurelio Disclaimer: This electronic medical record was generated, in whole or in part, using a voice recognition dictation system. Departure Departure: Impression: Primary Impression: Anemia Qualified Codes: D64.9 - Anemia, unspecified Additional Impression: Syncope Qualified Codes: R55 - Syncope and collapse Disposition: 02 XFER [facility] Admitting Physician: Pretty Navarro Condition: STABLE Referrals: YEHUDA BAKER MD (PCP) ALLEGRA REYES DO Jul 11, 2020 20:08
--- NOTE | 2020-07-11 20:11 | RAD ---
Exam: Chest one view INDICATION: Syncope TECHNIQUE: Chest one view Comparisons: 03/19/2020 FINDINGS: The cardiomediastinal silhouette and pulmonary vessels are within normal limits. Stable coarse interstitial markings at the lung bases. No pleural effusion. IMPRESSION: No acute pulmonary process identified. Electronically signed by: Katie Chen MD (07/11/2020 8:08 PM) [id number]
[2020-07-11 20:34] LABS: % EOS 1 % (0-5); % LYMPHS 42 % (24-48); % MONOS 3 % (0-10); % SEGS 54 % (35-66)
[2020-07-11 20:35] LABS: ANISOCYTOSIS MOD; HYPOCHROMIA MOD; PLT ESTIMATE INCREASED (ADEQUATE)
[2020-07-11 21:02] LABS: BILIRUBIN,URINE NEG (NEG); CLARITY,URINE CLOUDY; COLOR,URINE YELLOW; GLUCOSE,URINE NEG (NEG); NITRITE,URINE NEG (NEG); RBC,URINE 0 /HPF (0-2); UROBILINOGEN,URINE 0.2 mg/dL (0.2 mg/dL)
[2020-07-11 21:03] LABS: BACTERIA,URINE 0 /HPF (0-FEW); SQUAMOUS EPITHELIAL CELL,UR MANY /LPF; WBC,URINE 0 /HPF (0-4)
[2020-07-11 22:54] VITALS: BP 115/74
--- NOTE | 2020-07-12 01:51 | EKG ---
[address] [address] Test Date: 2020-07-11 Test Time: 19:23:37 Pat Name: GARCIA TELLEZ Department: Room: Gender: F Supervisor Insulation: DANIELLE: 1960 Requested By: ALLEGRA REYES Order Number: [id number] Reading MD: Measurements Intervals [place] Rate: 63 P: 53 [place]: 156 QRS: 48 QRSD: 82 T: 48 QT: 414 QTc: 427 Interpretive Statements SINUS RHYTHM NORMAL ECG RI6.02 No previous ECG available for comparison
== END 2020-07-12 01:20 | disposition short-term general hospital (02) ==
LOC: ER 19:09
DX: R55 Syncope and collapse (principal); D64.9 Anemia, unspecified; M19.90 Unspecified osteoarthritis, unspecified site; J44.9 Chronic obstructive pulmonary disease, unspecified; E78.00 Pure hypercholesterolemia, unspecified; E03.9 Hypothyroidism, unspecified; F17.210 Nicotine dependence, cigarettes, uncomplicated; Z86.2 Personal history of diseases of the blood and blood-forming organs and certain disorders involving the immune mechanism; Z86.711 Personal history of pulmonary embolism; Z79.01 Long term (current) use of anticoagulants; Z88.0 Allergy status to penicillin
CPT/HCPCS: 36415; 70450; 71045; 80053; 81001; 84484; 85007; 85025; 93005; 99285-25

== ENCOUNTER 2022-01-27 19:45 | Emergency (ER) | payer SELFPAY ==
[~2022-01-27] VITALS: Ht 154.9 cm; Wt 37.7 kg
[2022-01-27 19:45] VITALS: BP 141/82
--- NOTE | 2022-01-27 19:48 | PHYS DOC ---
Past History Past Medical History: Anemia, Arthritis, Asthma, Bronchitis, COPD, Depression, High Cholesterol, Hypothyroid Past Surgical History: Hysterectomy, Other Smoking: Cigarettes, Greater than 1 pack/day Alcohol Use: Occasionally Drug Use: None General Adult HPI: HPI: ".. I tripped yesterday..... but I tired to break my fall with my Lt. hand... and hurt this Lt wrist in the process.. ..It is still sore today...:' Patient is a 61 year old female who presents with above hx and complaints of left wrist pain. Pt. after a trip and fall. FOOSH like mechanism of injury to Lt wrist. No other injury in the fall. Patient had pain with movement of left wrist. No pain on loading of the thumb or fingers. Distal neurovascular is equal to right hand. Mild pain on pronation and supination of wrist. Pain with flexion and extension. No specific tenderness over scaphoid. No upper arm tenderness. Patient is right-hand dominant. Patient has past medical history of hyperlipidemia, hypothyroidism, osteoarthritis, anemia,, pulmonary emboli, asthma, bronchitis, COPD,. Patient has had previous surgical history hysterectomy, multiple breast biopsies, left ankle fracture with open reduction and internal fixation. Patient still smokes tobacco. Has not gotten flu vaccination this season. Did get COVID vaccination Moderna. The pt. follows with Dr. Agatha Richey. Review of Systems: Review of Systems: Constitutional: Denies fever or chills Eyes: Denies change in visual acuity HENT: Denies nasal congestion or sore throat Respiratory: Denies cough or shortness of breath Cardiovascular: Denies chest pain or edema GI: Denies abdominal pain, nausea, vomiting, bloody stools or diarrhea : Denies dysuria Musculoskeletal: Complains of left wrist pain Integument: Denies rash Neurologic: Denies headache, focal weakness or sensory changes Endocrine: Denies polyuria or polydipsia Lymphatic: Denies swollen glands Psychiatric: Denies depression or anxiety Family History: Family History: Noncontributory to presentation Current Medications: Current Meds: See nursing for home meds Allergies: Allergies: Allergies Coded Allergies Type Severity Reaction Last Updated Verified Penicillins Allergy Intermediate 03/19/20 Yes Physical Exam: PE: Constitutional: no acute distress, non-toxic appearance. [] HENT: Normocephalic, atraumatic, bilateral external ears normal, oropharynx moist, no oral exudates, nose normal. [] Eyes: PERRLA, EOMI, conjunctiva normal, no discharge. [] Neck: Normal range of motion, no tenderness, supple, no stridor. [] Cardiovascular:Heart rate regular rhythm, no murmur [] Lungs & Thorax: Bilateral breath sounds equal apex scattered wheezes auscultation [] Abdomen: Bowel sounds normal, soft, no tenderness, no masses, no pulsatile masses. Old surgery scars. Skin: Warm, dry, no erythema, no rash. Skin scars Back: No tenderness, no CVA tenderness. [] Extremities: No tenderness, no cyanosis, no clubbing, ROM intact, no edema. [] Except findings in left wrist Neurologic: Alert and oriented X 3, normal motor function, normal sensory function, no focal deficits noted. [] Psychologic: Affect anxious, judgement normal, mood normal. [] EKG: EKG: [] Radiology/Procedures: Radiology/Procedures: [][place] [address] IMAGING REPORT Signed PATIENT: GARCIA TELLEZ ACCOUNT: [id number] : 1960 LOCATION: ER AGE: 61 SEX: F EXAM STATUS: REG ER ORD. PHYSICIAN: IMMANUEL MACHUCA MD REASON: FOOSH Like injury to Lt hand and wrist yesterday, still sore PROCEDURE: WRIST 3V LEFT INDICATION: Reason: FOOSH Like injury to Lt hand and wrist yesterday, still sore / Spl. Instructions: / History: COMPARISON: None. IMPRESSION: Left wrist: 3 views obtained. There is degenerative changes identified at the wrist. No definite acute fracture line is seen. There is some soft tissue swelling. Electronically signed by: Tuan Rajput MD (01/27/2022 8:16 PM) [id number] DICTATED AND SIGNED BY: TUAN RAJPUT MD DATE: 01/27/222013 CC: IMMANUEL MACHUCA MD; YEHUDA RICHEY MD ~ Heart Score: C/O Chest Pain: N/A Risk Factors: Risk Factors: DM, Current or recent (<one month) smoker, HTN, HLP, family history of CAD, obesity. Risk Scores: Score 0 - 3: 2.5% MACE over next 6 weeks - Discharge Home Score 4 - 6: 20.3% MACE over next 6 weeks - Admit for Clinical Observation Score 7 - 10: 72.7% MACE over next 6 weeks - Early Invasive Strategies Course & Med Decision Making: Course & Med Decision Making Pertinent Labs and Imaging studies reviewed. (See chart for details) Patient wear Anibal wrap. Follow-up primary care. Take Tylenol and ibuprofen for pain. Consider kathy-ray in 2 weeks if no improvement. Distal neurovascular intact post splint. Impression: 1. Wrist sprain [] Dragon Disclaimer: Dragon Disclaimer: This electronic medical record was generated, in whole or in part, using a voice recognition dictation system. Departure Departure: Referrals: YEHUDA RICHEY MD (PCP) Qi Disclaimer This chart was dictated in whole or in part using Voice Recognition software in a busy, high-work load, and often noisy Emergency Department environment. It may contain unintended and wholly unrecognized errors or omissions. IMMANUEL MACHUCA MD Jan 27, 2022 19:48
--- NOTE | 2022-01-27 20:19 | RAD ---
INDICATION: Reason: FOOSH Like injury to Lt hand and wrist yesterday, still sore / Spl. Instructions : / History: COMPARISON: None. IMPRESSION: Left wrist: 3 views obtained. There is degenerative changes identified at the wrist. No definite acut e fracture line is seen. There is some soft tissue swelling. Electronically signed by: Michael Mittal MD (01/27/2022 8:16 PM) [id number]
== END 2022-01-27 21:24 | disposition home or self-care (01) ==
LOC: ER 19:45
DX: S63.502A Unspecified sprain of left wrist, initial encounter (principal); M19.90 Unspecified osteoarthritis, unspecified site; J44.9 Chronic obstructive pulmonary disease, unspecified; E78.00 Pure hypercholesterolemia, unspecified; E03.9 Hypothyroidism, unspecified; F17.210 Nicotine dependence, cigarettes, uncomplicated; E78.5 Hyperlipidemia, unspecified; Z86.2 Personal history of diseases of the blood and blood-forming organs and certain disorders involving the immune mechanism; Z88.0 Allergy status to penicillin; W01.0XXA Fall on same level from slipping, tripping and stumbling without subsequent striking against object, initial encounter; Y93.89 Activity, other specified; Y92.89 Other specified places as the place of occurrence of the external cause; Y99.8 Other external cause status
CPT/HCPCS: 29125; 73110; 99283